=== PATIENT | male | born 1945 | race African-American/Black ===

== ENCOUNTER 2017-01-14 09:13 | Outpatient (CLI) ==
[2017-01-14 09:39] VITALS: BMI 35.0
== END 2017-01-14 09:14 | disposition short-term general hospital (02) ==
LOC: AMBL 09:13
PROVIDERS: ATTEND Emergency Medicine
DX: R41.82 Altered mental status, unspecified (principal); R06.02 Shortness of breath; S91.301A Unspecified open wound, right foot, initial encounter; E11.52 Type 2 diabetes mellitus with diabetic peripheral angiopathy with gangrene; Z89.421 Acquired absence of other right toe(s)

== ENCOUNTER 2017-01-14 09:28 | Emergency (ER) ==
--- NOTE | 2017-01-14 09:33 | ED.PDOC ---
General ED Provider: Dr. ADRIANE VILLEDA JR Chief Complaint: Altered Mental Status Stated Complaint: per EMS altered mental today leaning to right not as interactive as ususal. [facility] STATES ON [employer] BECAME CONFUSED AND WAS LEANING TO THE RIGHT. STATES SPEECH WAS A LOT SOFTER FOR HIM, NOT SLURRED NOT NORMAL FOR HIM.ALERT ABLE TO ANSWER QUESTIONS.WEAK AND TIRED.WOUND VAC RIGHT FOOT patient states began after he got up this morning [End]99.7 67 20 94 % 154/69 Time Seen by Physician: 09:33 Mode of Arrival: Ambulance Information Source: EMT Exam Limitations: Altered mental status Nursing and Triage Documentation Reviewed and Agree: No Review of Systems - Review Of Systems Constitutional: Reports: Malaise Eyes: Reports: No symptoms Ears, Nose, Mouth, Throat: Reports: No symptoms Respiratory: Reports: No symptoms Cardiac: Reports: No symptoms GI: Reports: No symptoms : Reports: No symptoms Musculoskeletal: Reports: No symptoms Skin: Reports: No symptoms Neurological: Reports: Cognitive dysfunction, Weakness Hematologic/Lymphatic: Reports: No symptoms All Other Systems: Other Past Medical History - Past Medical History Endocrine: Reports: Unknown Cardiovascular: Reports: Hypertension Respiratory: Reports: Unknown Hematological: Reports: Other (PVD) Gastrointestinal: Reports: GERD Genitourinary: Reports: CKD Neuro/Psych: Reports: Unknown Musculoskeletal: Reports: Unknown Cancer: Reports: Unknown - Surgical History General Surgical History: Reports: Unknown - Family History Family History: Reports: Unknown Physical Exam - Physical Exam Appearance: Ill-appearing, Obese Ill-appearing: Moderate Pain Distress: Mild Eyes: TY, EOMI, Conjunctiva clear ENT: Ears normal, Nose normal, Oropharynx normal Neck: Supple Respiratory: Airway patent, Breath sounds clear, Breath sounds equal, Respirations nonlabored Cardiovascular: RRR, Pulses normal, No rub, No murmur GI/: Soft, Nontender, No masses, Bowel sounds normal, No Organomegaly Musculoskeletal: Limited ROM, Limited strength Skin: Warm, Dry, Normal color Neurological: Sensation intact, Motor intact, Reflexes intact, Cranial nerves intact, Alert, Oriented Psychiatric: Affect appropriate (very slow to answer), Mood appropriate Interpretation - Radiology Interpretation Radiology Interpretation By: Radiologist Radiology Results: Negative Exam Interpreted: CXR, CT Scan (head) - EKG Interpretation Time of EKG #1: 09:40 Rate: Normal Rhythm: Sinus Ectopy: None [place]: NL ST Segment: Normal Interpretation: nonacute Physician Notification - Case Discussed Physician Notified: KATT Time of Notification: 13:40 (no neurologist OK admit) Physician Notified: Jennifer Fernandez Time of Notification: 14:06 (accept [facility]) Critical Care Note - Critical Care Note Total Time (mins): 40 Course - Course Hematology/Chemistry: 01/14/17 10:10 01/14/17 10:10 Orders, Labs, Meds: Lab Review 01/14/17 01/14/17 01/14/17 10:10 10:10 10:10 WBC 9.43 RBC 4.12 L Hgb 11.0 L Hct 33.9 L MCV 82.3 MCH 26.7 L MCHC 32.4 RDW Coeff of Lexy 15.0 H Plt Count 288 Immature Gran % (Auto) 0.4 Neut % (Auto) 58.7 Lymph % (Auto) 31.9 [place] % (Auto) 7.3 Eos % (Auto) 1.2 Baso % (Auto) 0.5 Immature Gran # (Auto) 0.0 Neut # 5.5 Lymph # 3.0 [place] # 0.7 Eos # 0.1 Baso # 0.1 PT INR D-Dimer (Manual) Sodium 140 Potassium 4.4 Chloride 105 Carbon Dioxide 25 Anion Gap 14.4 BUN 18 Creatinine 1.23 H Estimated GFR (MDRD) 71.00 BUN/Creatinine Ratio 14.63 Glucose 168 H Lactic Acid Calcium 9.7 Total Bilirubin 0.37 AST 26 ALT 22 Alkaline Phosphatase 115 Total Creatine Kinase 674 CK-MB (CK-2) 1.5 CK-MB (CK-2) % 0.04744 Troponin I 0.0280 B-Natriuretic Peptide 84 Total Protein 7.3 Albumin 2.7 L Globulin 4.6 Albumin/Globulin Ratio 0.59 Procalcitonin Urine Color Urine Clarity Urine pH Ur Specific [place] Urine Protein Urine Glucose (UA) Urine Ketones Urine Blood Urine Nitrite Urine Bilirubin Urine Urobilinogen Ur Leukocyte Esterase Urine Microscopic WBC Ur Squamous Epith Cells 01/14/17 01/14/17 01/14/17 10:10 10:10 10:10 WBC RBC Hgb Hct MCV MCH MCHC RDW Coeff of Lexy Plt Count Immature Gran % (Auto) Neut % (Auto) Lymph % (Auto) [place] % (Auto) Eos % (Auto) Baso % (Auto) Immature Gran # (Auto) Neut # Lymph # [place] # Eos # Baso # PT 10.5 INR 1.03 D-Dimer (Manual) 6284.02 Sodium Potassium Chloride Carbon Dioxide Anion Gap BUN Creatinine Estimated GFR (MDRD) BUN/Creatinine Ratio Glucose Lactic Acid Calcium Total Bilirubin AST ALT Alkaline Phosphatase Total Creatine Kinase CK-MB (CK-2) CK-MB (CK-2) % Troponin I B-Natriuretic Peptide Total Protein Albumin Globulin Albumin/Globulin Ratio Procalcitonin 0.09 Urine Color Urine Clarity Urine pH Ur Specific [place] Urine Protein Urine Glucose (UA) Urine Ketones Urine Blood Urine Nitrite Urine Bilirubin Urine Urobilinogen Ur Leukocyte Esterase Urine Microscopic WBC Ur Squamous Epith Cells 01/14/17 01/14/17 10:10 10:55 WBC RBC Hgb Hct MCV MCH MCHC RDW Coeff of Lexy Plt Count Immature Gran % (Auto) Neut % (Auto) Lymph % (Auto) [place] % (Auto) Eos % (Auto) Baso % (Auto) Immature Gran # (Auto) Neut # Lymph # [place] # Eos # Baso # PT INR D-Dimer (Manual) Sodium Potassium Chloride Carbon Dioxide Anion Gap BUN Creatinine Estimated GFR (MDRD) BUN/Creatinine Ratio Glucose Lactic Acid 9.9 Calcium Total Bilirubin AST ALT Alkaline Phosphatase Total Creatine Kinase CK-MB (CK-2) CK-MB (CK-2) % Troponin I B-Natriuretic Peptide Total Protein Albumin Globulin Albumin/Globulin Ratio Procalcitonin Urine Color Yellow Urine Clarity Clear Urine pH 6.0 Ur Specific [place] 1.020 Urine Protein 2+ Urine Glucose (UA) Negative Urine Ketones Negative Urine Blood Negative Urine Nitrite Negative Urine Bilirubin Negative Urine Urobilinogen 0.2 Ur Leukocyte Esterase Negative Urine Microscopic WBC 0-2 Ur Squamous Epith Cells 0-2 Orders Category Date Time Status EKG-(ED ONLY) Stat CARDIO 01/14/17 09:31 Completed IV ACCESS ONCE CARE 01/14/17 09:34 Active NPO REMINDER: IMAGING ONCE CARE 01/14/17 11:50 Completed ED REVIEW COORDINATOR APPLIED .ONCE EMERGENCY 01/14/17 09:34 Active ED IV/MEDIPORT/POWERPORT .ONCE EMERGENCY 01/14/17 09:30 Active ED VITAL SIGNS Q1HR EMERGENCY 01/14/17 09:34 Active B-TYPE NATRIURETIC PEPTIDE Stat LAB 01/14/17 10:10 Completed BLOOD CULTURE Stat LAB 01/14/17 09:34 Ordered CBC W/ AUTO DIFF Stat LAB 01/14/17 10:10 Completed COMPREHENSIVE METABOLIC PANEL Stat LAB 01/14/17 10:10 Completed CREATINE KINASE Stat LAB 01/14/17 10:10 Completed D-DIMER Stat LAB 01/14/17 10:10 Completed LACTIC ACID Stat LAB 01/14/17 10:10 Completed PROCALCITONIN Stat LAB 01/14/17 10:10 Completed PT WITH INR Stat LAB 01/14/17 10:10 Completed TROPONIN I Stat LAB 01/14/17 10:10 Completed URINALYSIS C & S IF INDICATED Stat LAB 01/14/17 10:55 Completed 0.9 % Sodium Chloride [Saline Flush] MEDS 01/14/17 09:30 Active 1 syr IVF PRN PRN CHEST, 1V AP ONLY Stat RADS 01/14/17 09:[address] CHEST PE PROTOCOL Stat RADS 01/14/17 11:[address] HEAD W/O CONTRAST Stat RADS 01/14/17 09:30 Completed Medications Generic Name Dose Route Start Last Admin Trade Name Freq PRN Reason Stop Dose Admin Sodium Chloride 1 syr 01/14/17 09:30 Saline Flush IVF PRN PRN To flush IV Vital Signs: Temp Pulse Resp BP Pulse Ox 01/14/17 13:57 98.7 F 65 18 166/69 H 96 01/14/17 09:29 99.7 F H 67 20 154/69 H 94 L Departure - Departure Time of Disposition: 14:10 Disposition: TSF SHORT-TRM HOSP Discharge Problem: Altered mental status Condition: Stable Pt referred to PMD for follow-up: No (neurology) Allergies/Adverse Reactions: Allergies Sulfa (Sulfonamide Antibiotics) Adverse Reaction (Verified 01/14/17 09:45) Home Medications: Ambulatory Orders Alprazolam [Xanax] 1 mg PO BEDTIME 01/14/17 Amlodipine Besylate [Norvasc] 10 mg PO BID 01/14/17 Aspirin [Aspirin Chewable] 81 mg PO DAILYWM 01/14/17 Atorvastatin Calcium [Lipitor] 20 mg PO BEDTIME 01/14/17 Collagenase Clostridium Hist [Santyl] 1 applic TP DAILY 01/14/17 Gabapentin [Neurontin] 400 mg PO TID 01/14/17 Hydralazine HCl [Apresoline] 50 mg PO TID 01/14/17 Hydrocodone Bit/Acetaminophen [[place] 10-325] 1 each PO PRN PRN 01/14/17 Hydrocodone Bit/Acetaminophen [[place] 10-325] 1 each PO TID 01/14/17 Insulin Aspart [Novolog] 30 unit SQ BID 01/14/17 Insulin Glargine,Hum.rec.anlog [Lantus] 10 unit SQ DAILY 01/14/17 Insulin Lispro [Humalog] See Protocol SUBCUT BID 01/14/17 Lisinopril [Zestril] 40 mg PO DAILY 01/14/17 Pantoprazole Sodium [Protonix] 40 mg PO QDAC 01/14/17 Saccharomyces Boulardii [Florastor] 250 mg PO DAILY 01/14/17
[2017-01-14 09:39] VITALS: BMI 35.0
[2017-01-14 10:17] LABS: BASOPHILS # (AUTO) 0.1 K/uL (0-0.2); BASOPHILS % (AUTO) 0.5 % (0.0-3.0); EOSINOPHILS # (AUTO) 0.1 K/ul (0.0-0.7); EOSINOPHILS % (AUTO) 1.2 % (0.0-7.0); HEMATOCRIT 33.9 % (42.0-52.0); IMMATURE GRANULOCYTE % (AUTO) 0.4 % (0.0-5.0); LYMPHOCYTES % (AUTO) 31.9 (10.0-50.0); MEAN CORPUSCULAR HEMOGLOBIN 26.7 pg (27.0-31.0); MEAN CORPUSCULAR HGB CONC 32.4 (31.8-35.4); MEAN CORPUSCULAR VOLUME 82.3 fl (80.0-94.0); MONOCYTES # (AUTO) 0.7 K/uL (0.4-2.0); MONOCYTES % (AUTO) 7.3 (0-10); NEUTROPHILS # (AUTO) 5.5 K/ul (2.0-6.9); NEUTROPHILS % (AUTO) 58.7; PLATELET COUNT 288 10^3/uL (140-440); RED BLOOD COUNT 4.12 10^6/ul (4.70-6.10); WHITE BLOOD COUNT 9.43 K/ul (4.2-10.2)
--- NOTE | 2017-01-14 10:30 | DI ---
EXAM: CHEST FRONTAL VIEW HISTORY: Weakness. COMPARISON: None FINDINGS: Heart size appears mildly prominent. There is a left-sided pacemaker unit which appears t o be grossly normal position. No acute infiltrates are seen. No vascular congestion. There is no c onsolidation, visible pleural fluid or pneumothorax. Bones reveal no acute fracture. IMPRESSION: No acute cardiopulmonary process.
--- NOTE | 2017-01-14 10:32 | CT ---
Exam: CT of the brain without intravenous contrast. Comparison: None available. Reason for exam: Altered mental status. FINDINGS: No acute intracranial hemorrhage, mass effect, ventricular dilatation, or territorial infa rction. The quadrigeminal and ambient cisterns are patent. There is no extraaxial fluid collection. Parenchymal changes are seen consistent with chronic microvascular disease. Atherosclerotic calcif ications are seen within the vertebral arteries. The calvarium is intact. There is mild mucosal thickening in the ethmoid sinuses. The sphenoid sinu ses, maxillary sinuses, and mastoid air cells are unopacified. Nonspecific inflammatory changes are s een in the subcutaneous fat of the frontal calvarium adjacent to the frontal sinus. Impression: 1. No acute intracranial findings. If clinical concern exists for infarct, MRI may be performed. 2. Parenchymal changes consistent with chronic microvascular disease Report faxed at [id number] hours on 01/14/2017.
[2017-01-14 10:36] LABS: PROTHROMBIN TIME 10.5 SEC (9.3-11.0)
[2017-01-14 10:53] LABS: ALBUMIN 2.7 g/dL (3.4-5.0); ALBUMIN/GLOBULIN RATIO 0.59; ANION GAP 14.4; BILIRUBIN,TOTAL 0.37 mg/dL (0.00-1.20); BUN/CREATININE RATIO 14.63; CALCIUM 9.7 mg/dL (8.2-10.2); CREATININE 1.23 mg/dL (0.60-1.10); POTASSIUM 4.4 mmol/L (3.5-5.1); TOTAL PROTEIN 7.3 g/dL (5.8-8.1); TROPONIN I 0.028 ng/ml (0.0000-0.4000)
[2017-01-14 11:08] LABS: BILIRUBIN,URINE Negative (NEGATIVE); KETONES,URINE Negative (NEGATIVE); LEUKOCYTE ESTERASE ,URINE Negative (NEGATIVE); NITRITE,URINE Negative (NEGATIVE); PROTEIN,URINE 2+ (NEGATIVE); URINE, BLOOD Negative (NEGATIVE)
[2017-01-14 11:12] LABS: CREATINE KINASE MB 1.5 ng/ml (0.0-3.6)
[2017-01-14 11:14] LABS: ADD URINE MICROSCOPIC YES
--- NOTE | 2017-01-14 13:25 | CT ---
EXAM: CTA CHEST (PE PROTOCOL) HISTORY: Shortness of breath and elevated D-dimer TECHNIQUE: CTA chest with intravenous contrast. Multiplanar images were provided with 3-D reconstru ctions. 100 mL Omnipaque. COMPARISON: None FINDINGS: No pulmonary arterial filling defect is identified. There is moderate atherosclerotic disease. Hear t size is upper limit normal with no pericardial effusion. Diffuse esophageal wall thickening. Ther e is a small hiatal hernia. Tiny right pleural effusion. Mild consolidations in the lung bases. Lungs reveal a few nodular opaci ties probably most well-defined located in the posterior aspect of the left lower lobe at 1.1 cm. The se could represent nodules or nodular foci of parenchymal consolidation or fissural fluid. There is mild pulmonary vascular congestion with no notable central interstitial edema. No pneumothorax. Bones reveal no acute finding. IMPRESSION: 1. No pulmonary arterial thromboembolism. 2. Upper limit normal heart size. Mild pulmonary vascular congestion. 3. Tiny right pleural effusion. Mild bibasilar lung consolidations (atelectasis versus pneumonia). Additional nodular opacities in the lungs may represent areas of consolidation or conceivably nodules . Follow-up CT may be beneficial after treatment and symptom resolution. 4. Diffuse thickening of the esophagus. Consider esophagitis. Neoplasia not excluded. Further wor kup is recommended.
[2017-01-14 13:57] VITALS: BP 166/69; TEMP 98.7
== END 2017-01-14 14:43 | disposition short-term general hospital (02) ==
LOC: ED 09:28
DX: R41.82 Altered mental status, unspecified (principal); R53.1 Weakness; I10 Essential (primary) hypertension; I73.9 Peripheral vascular disease, unspecified; N18.9 Chronic kidney disease, unspecified; Z79.899 Other long term (current) drug therapy; Z89.421 Acquired absence of other right toe(s); E11.52 Type 2 diabetes mellitus with diabetic peripheral angiopathy with gangrene
CPT/HCPCS: 36415; 80053; 81001; 82550; 82553; 83605; 83880; 84145; 84484; 85025; 85379; 85610; 87040; 93005; 93010; 99285